=== PATIENT | female | born 1985 | race African-American/Black ===

== ENCOUNTER 2021-12-03 22:22 | Emergency (ER) | payer MEDICAID, OTHER ==
[~2021-12-03] VITALS: Ht 172.7 cm; Wt 61.2 kg
[~2021-12-03 22:22] MED LIST: IBUP-974 PO; PREN-385 PO
[2021-12-03 22:29] VITALS: BP 107/61
--- NOTE | 2021-12-03 22:34 | NUR ---
TO LOBBY FOLLOWING TRIAGE
[2021-12-03] MEDS ORDERED: HYDROcodone/APAP 7.5/325 MG 1 TAB PO ONE (23:05)
--- NOTE | 2021-12-04 00:09 | NUR ---
PATIENT MEDICATED PER ORDERS. TOLERATED WELL. PATIENT AMBULATED BACK TO [facility]
[2021-12-04] MEDS ORDERED: IBUP-1878 PO (00:19)
--- NOTE | 2021-12-04 00:32 | NUR ---
PER ERMD INSTRUCTIONS, PTS LEFT KNEE WAS WRAPPED WITH AN BALAJI BANDAGE, +CMS BEFORE AND AFTER PROCEDURE. TANIA TAPE OF THE 4TH AND 5TH DIGITS OF THE LEFT FOOT
[2021-12-04 01:35] VITALS: BP 107/61
== END 2021-12-04 01:35 | disposition home or self-care (01) ==
LOC: MED 22:22
DX: S89.92XA Unspecified injury of left lower leg, initial encounter (principal); S99.921A Unspecified injury of right foot, initial encounter; Z79.899 Other long term (current) drug therapy; W19.XXXA Unspecified fall, initial encounter; Y93.89 Activity, other specified; Y92.098 Other place in other non-institutional residence as the place of occurrence of the external cause; Y99.8 Other external cause status
CPT/HCPCS: 73562; 73660; 99284

== ENCOUNTER 2022-08-20 11:22 | Emergency (ER) | payer BC, MEDICAID ==
[~2022-08-20] VITALS: Ht 172.7 cm; Wt 68.0 kg
[~2022-08-20 11:22] MED LIST changes: +IBUP-1878 PO
[2022-08-20 11:25] VITALS: BP 104/71; PULSE 90; TEMP 98; O2SAT 94
--- NOTE | 2022-08-20 11:25 | NUR ---
AMB. TO BED 10 WITH NO ACUTE DISTRESS
[2022-08-20] MEDS ORDERED: KETOROLAC 30 MG/ML VIAL IM ONE (11:50)
[2022-08-20] MEDS ORDERED: FAMOTIDINE 20 MG TAB PO ONE (11:55)
[2022-08-20] MEDS ORDERED: ALUMINUM HYD/MAG/SIMETHICONE 30 ML UDC PO ONE (11:55)
[2022-08-20 12:04] LABS: BASOPHILS % (AUTO) 0.2 % (0.0-2.0); EOSINOPHILS % (AUTO) 0.3 % (0.0-4.0); HEMATOCRIT 36.8 % (36-48); HEMOGLOBIN 12.1 g/dL (12.0-16.0); LYMPHOCYTES # (AUTO) 0.7 K/uL (2.5-16.5); LYMPHOCYTES % (AUTO) 16.1 % (20.5-51.1); MEAN CORPUSCULAR HEMOGLOBIN 30 pg (27-31); MEAN CORPUSCULAR HGB CONC 33 g/dL (33-37); MEAN CORPUSCULAR VOLUME 92.3 fL (80-94); MONOCYTES # (AUTO) 0.4 K/uL (0.8-1.0); MONOCYTES % (AUTO) 9.9 % (1.7-9.3); NEUTROPHILS # (AUTO) 3.3 K/uL (1.8-7.7); NEUTROPHILS % (AUTO) 73.5 % (42.2-75.2); PLATELET COUNT (AUTO) 197 K/uL (140-450); RED BLOOD CELL COUNT(AUTO) 3.99 MIL/uL (4.20-5.40); RED CELL DISTRIBUTION WIDTH 12.9 % (11.6-13.7); WHITE BLOOD COUNT (AUTO) 4.4 K/uL (4.8-10.8)
--- NOTE | 2022-08-20 12:28 | NUR ---
PT. AWAKE AND ALERT. STATES FEELING BETTER AFTER MAALOX. MADE AWARE
[2022-08-20 12:32] LABS: ALBUMIN 3.5 g/dL (3.4-5.0); ANION GAP 11.7 (8-16); ASPARTATE AMINOTRANSFERASE 15 U/L (15-37); CHLORIDE 105 mmol/L (98-107); CREATININE 0.7 mg/dL (0.6-1.3); GFR ARICAN-AMERICAN 120 mL/min (>90); GLUCOSE 103 mg/dL (74-106); LIPASE 96 U/L (73-393); POTASSIUM 3.7 mmol/L (3.5-5.1); SODIUM SERUM 138 mmol/L (136-145); TOTAL BILIRUBIN 0.3 mg/dL (0.0-1.0); UREA NITROGEN, BLOOD 7 mg/dL (7-18)
[2022-08-20 12:40] LABS: APPEARANCE,URINE CLEAR (CLEAR); BILIRUBIN,URINE NEGATIVE (NEGATIVE); BLOOD, URINE TRACE-I (NEGATIVE); COLOR,URINE YELLOW (YELLOW); LEUKOCYTE ESTERASE ,URINE NEGATIVE (NEGATIVE); NITRITE, URINE NEGATIVE (NEGATIVE); PH,URINE 6.5 (5.0-9.0); UGLUCOSE NEGATIVE (NEGATIVE)
[2022-08-20 12:52] LABS: RBC,URINE 0-5 /HPF (0-5)
--- NOTE | 2022-08-20 13:11 | NUR ---
MOVE TO ER BED 9
[2022-08-20] MEDS ORDERED: FAMO-90 PO (14:29)
[2022-08-20] MEDS ORDERED: ACET-10509 PO (14:29)
[2022-08-20 14:45] VITALS: BP 105/63; PULSE 78; RESP 18; TEMP 97.9; O2SAT 97
--- NOTE | 2022-08-20 14:45 | NUR ---
Patient discharged with v/s stable. Written and verbal after care instructions given and explained. Patient alert, oriented and verbalized understanding of instructions. Ambulatory with steady gait. All questions addressed prior to discharge. ID band removed. Patient advised to follow up with PMD. Rx of PEPCID, TYLENOL given. Patient educated on indication of medication including possible reaction and side effects. Opportunity to ask questions provided and answered. IV D/C'D.
== END 2022-08-20 14:45 | disposition home or self-care (01) ==
LOC: MED 11:22
DX: K21.9 Gastro-esophageal reflux disease without esophagitis (principal); R07.89 Other chest pain; R79.1 Abnormal coagulation profile; Z98.51 Tubal ligation status; Z79.899 Other long term (current) drug therapy; Z79.1 Long term (current) use of non-steroidal anti-inflammatories (NSAID)
CPT/HCPCS: 36415; 71045; 71275; 80053; 81001; 81025; 83690; 84484; 85025; 85379; 96372; 99285; J1885; Q9967